=== PATIENT | male | born 1985 | race African-American/Black ===

== ENCOUNTER 2021-04-24 20:58 | Emergency (ER) | payer SELFPAY ==
[2021-04-24] MEDS ORDERED: METOCLOPRAMIDE 10 MG/2mL INJ ONE (21:05)
[2021-04-24] MEDS ORDERED: NA CHLORIDE 0.9% 1,000 ML ONE (21:06)
[2021-04-24] MEDS ORDERED: MORPHINE 4 MG/ML SYR ONE (21:06)
[2021-04-24 21:38] LABS: Absolute Lymphocytes (CBC) 2.4 K/uL (0.7-4.9); Basophils % 0.8 % (0-1.3); Hematocrit 41.9 % (39.6-49.0); MPV 8.3 fL (7.6-11.3); RBC Red Blood Cell Count 4.69 M/uL (4.33-5.43)
[2021-04-24 21:48] LABS: Potassium 3.6 mmol/L (3.5-5.1)
[2021-04-24 22:24] LABS: SARS-COV-2 RT PCR NEGATIVE (NEGATIVE)
[2021-04-24] MEDS ORDERED: MEPERIDINE HCL 50 MG/ML ONE (22:56)
[2021-04-24 23:32] LABS: Barbiturates NEGATIVE (NEGATIVE); Benzodiazepines NEGATIVE (NEGATIVE); Cocaine NEGATIVE (NEGATIVE); METHAMPHETAM NEGATIVE (NEGATIVE); Methadone NEGATIVE (NEGATIVE); Opiates NEGATIVE (NEGATIVE); Phencyclidine NEGATIVE (NEGATIVE); THC Cannibis POSITIVE (NEGATIVE)
--- NOTE | 2021-04-25 | ER ---
Nurse's Notes [facility] Name: Eligio Munguia Age: 36 yrs Sex: Male : 1985 Arrival Date: 04/24/2021 Time: 21:03 Bed 17 Private MD: Diagnosis: Headache Presentation: 04/24 21:10 Chief complaint: EMS states: they were toned out for report of pt with chest pain bb radiating down left arm and difficulty breathing which started earlier today. Coronavirus screen: difficulty breathing, Client presents with at least one sign or symptom that may indicate coronavirus-19. Standard/surgical mask placed on the client. Ebola Screen: No symptoms or risks identified at this time. Initial Sepsis Screen: Does the patient meet any 2 criteria? No. Patient's initial sepsis screen is negative. Does the patient have a suspected source of infection? No. Patient's initial sepsis screen is negative. Risk Assessment: Do you want to hurt yourself or someone else? Patient reports no desire to harm self or others. Onset of symptoms was April 24, 2021. Care prior to arrival: Medication(s) given: Normal saline infusion, Fentanyl 50 mcg IV initiated. 18 GA, in the left antecubital area, Glucose check: 110. 21:10 Method Of Arrival: EMS: [facility] bb 21:10 Acuity: JUSTIN 3 bb Triage Assessment: 21:21 General: Appears distressed, uncomfortable, Behavior is agitated, anxious. Pain: bb Complains of pain in chest Pain radiates to left arm Pain currently is 10 out of 10 on a pain scale. Neuro: Level of Consciousness is awake, alert, obeys commands, Oriented to person, place, situation. Cardiovascular: Capillary refill < 3 seconds Patient's skin is warm and dry. Rhythm is sinus rhythm. Respiratory: Respiratory pattern is tachypnea. GI: No signs and/or symptoms were reported involving the gastrointestinal system. Derm: Skin is dry, Skin is normal, Skin temperature is warm. Musculoskeletal: Circulation, motion, and sensation intact. Historical: - Allergies: 21:21 No Known Allergies; bb - Home Meds: 21:21 None [Active]; bb - PMHx: 21:21 None; bb - PSHx: 21:21 None; bb - Immunization history:: Adult Immunizations up to date, Client reports having NOT received the Covid vaccine. - Social history:: Smoking status: Patient reports the use of cigarette tobacco products, smokes one-half pack cigarettes per day, Patient uses alcohol, occasionally. street drugs, marijuana, pt smoked marijuana earlier today. - Family history:: not pertinent. - Hospitalizations: : No recent hospitalization is reported. Screenin:33 Abuse screen: Denies threats or abuse. Denies injuries from another. Nutritional sm5 screening: No deficits noted. Tuberculosis screening: No symptoms or risk factors identified. Fall Risk No fall in past 12 months (0 pts). No secondary diagnosis (0 pts). No IV (0 pts). Ambulatory Aid- None/Bed Rest/Nurse Assist (0 pts). Gait- Normal/Bed Rest/Wheelchair (0 pts) Mental Status- Oriented to own ability (0 pts). Total Jacobson Fall Scale indicates No Risk (0-24 pts). Assessment: 21:00 Neuro: Level of Consciousness is awake, alert, Oriented to person, place, time, sm5 situation. Cardiovascular: Reports chest pain, Rhythm is regular. Respiratory: Airway is patent Trachea midline Respiratory effort is even, labored. 22:00 Reassessment: Patient and/or family updated on plan of care and expected duration. Pain sm5 level reassessed. 22:55 Pain: Complains of pain in head Pain currently is 5 out of 10 on a pain scale. sm5 04/25 00:18 Reassessment: Patient states feeling better. Patient states symptoms have improved. sm5 Vital Signs: 04/24 21:00 BP 141 / 115; Pulse 91; Resp 25; Pulse Ox 99% on R/A; sm5 21:10 BP 154 / 108; Pulse 96; Resp 32 S; Temp 98.7; Pulse Ox 99% on R/A; Weight 99.79 kg (R); bb Height 5 ft. 9 in. (175.26 cm) (R); 22:00 BP 126 / 87; Pulse 82; Resp 19; Pulse Ox 100% ; sm5 23:00 BP 136 / 71; Pulse 81; Resp 17; Pulse Ox 96% ; sm5 23:00 BP 128 / 113; Pulse 84; Resp 17; Pulse Ox 99% ; sm5 21:10 Body Mass Index 32.49 (99.79 kg, 175.26 cm) bb Joanna Coma Score: 23:57 Eye Response: spontaneous(4). Verbal Response: oriented(5). Motor Response: obeys rn commands(6). Total: 15. ED Course: 21:03 Patient arrived in ED. lp1 21:03 Alex Aguilar MD is Attending Physician. rn 21:06 Laura Swan RN is Primary Nurse. 5 21:07 Initial lab(s) drawn, by me, sent to lab. Maintain EMS IV. Dressing intact. Good blood lp1 return noted. Site clean \T\ dry. Gauge \T\ site: 18g to R AC. 21:21 Triage completed. bb 21:21 Arm band placed on Patient placed in an exam room, on a stretcher, on secured entrance monitor, bb on pulse oximetry, NRB placed on pt to room air for tachypnea. 21:23 Strep Sent. sm5 21:24 Basic Metabolic Panel Sent. sm5 21:24 Procalcitonin Sent. sm5 21:24 CBC with Diff Sent. sm5 21:24 Barron Screen Profile Sent. sm5 21:48 COVID-19/FLU A+B Sent. sm5 21:48 Strep Sent. sm5 22:21 CT Head Brain wo Cont In Process Unspecified. EDMS 22:22 CT Head Angio In Process Unspecified. EDMS 22:22 CT Neck Angio In Process Unspecified. EDMS 22:49 Urine Drug Screen Sent. 5 12 00:19 No provider procedures requiring assistance completed. IV discontinued, intact, sm5 bleeding controlled, No redness/swelling at site. Pressure dressing applied. 00:19 Patient has correct armband on for positive identification. Placed in gown. Bed in low 5 position. Call light in reach. Side rails up X2. Administered Medications: 04/24 21:10 Drug: NS 0.9% 1000 ml Route: IV; Rate: 1000 ml; Site: right antecubital; bb 22:30 Follow up: IV Status: Completed infusion; IV Intake: 1000ml 5 21:13 Drug: morphine 4 mg {Note: RASS 1.} Route: IVP; Site: right antecubital; bb 21:15 Drug: Reglan (metoCLOPramide) 10 mg Route: IVP; Site: right antecubital; bb 23:03 Drug: Demerol (meperidine) 50 mg Route: IM; Site: right deltoid; sm5 Intake: 22:30 IV: 1000ml; Total: 1000ml. [facility] Outcome: 04/25 00:00 Discharge ordered by . rn 00:19 Discharged to home ambulatory, with friend. [facility] 00:19 Condition: good 00:19 Discharge instructions given to patient, friend, Instructed on discharge instructions, Demonstrated understanding of instructions, follow-up care, medications, Prescriptions given X 1. 00:21 Patient left the ED. [facility] Signatures: Dispatcher [employer] EDMS Tiana Storey RN RN bb Alex Aguilar MD MD rn Pena, Laura, RN RN lp1 Laura Swan RN RN 5 Corrections: (The following items were deleted from the chart) 04/24 21:24 21:23 SARS-COV-2 RT PCR+MOL.LAB.BRZ drawn and sent. [address] 21:25 20:15 NS 0.9% 1000 ml IV at 1000 ml in right antecubital bb 22:15 22:14 General: [place] [id number] 22:16 21:00 General: Appears distressed, [place] [id number] 22:16 21:00 Pain: Complains of pain in chest [place] [id number]
--- NOTE | 2021-04-25 00:01 | EDPHYS ---
Physician Documentation [facility] Name: Eligio Munguia Age: 36 yrs Sex: Male : 1985 Arrival Date: 04/24/2021 Time: 21:03 Bed 17 Private MD: ED Physician Alex Aguilar HPI: 04/24 21:24 This 36 yrs old Black Male presents to ER via EMS with complaints of Headache. rn 21:24 The patient complains of pain to the left gnosticism, left side of the back of head, left rn occipital area and left base of the skull. The patient describes the headache as aching, throbbing. Onset: The symptoms/episode began/occurred yesterday. Associated signs and symptoms: Pertinent positives: malaise, blurred vision, Pertinent negatives: altered mental status, fever. Severity of symptoms: At its worst the pain was moderate. Headache History: Denies prior headaches. The symptoms are alleviated by nothing. the symptoms are aggravated by movement, Palpation. The patient has not experienced similar symptoms in the past. The patient has not recently seen a physician. Patient reports headache that began yesterday, improved a little bit with [id number] medication. Headache came back today, left-sided, throbbing, feels it more around the left ear, radiates down the neck and into the chest. Denies any injury. No fever. No vomiting. No focal neurological deficit. Reports slight blurred vision. Reports tingling all over her body that began when breathing heavy. Reports smoked marijuana earlier but denies other drugs. No family history of brain aneurysm or tumor. Given fentanyl by EMS with only slight improvement. Denies history of headache.. Historical: - Allergies: 21:21 No Known Allergies; bb - Home Meds: 21:21 None [Active]; bb - PMHx: 21:21 None; bb - PSHx: 21:21 None; bb - Immunization history:: Adult Immunizations up to date, Client reports having NOT received the Covid vaccine. - Social history:: Smoking status: Patient reports the use of cigarette tobacco products, smokes one-half pack cigarettes per day, Patient uses alcohol, occasionally. street drugs, marijuana, pt smoked marijuana earlier today. - Family history:: not pertinent. - Hospitalizations: : No recent hospitalization is reported. ROS: 21:24 Constitutional: Negative for fever, chills, and weight loss, Eyes: Negative for injury, rn pain, redness, and discharge, ENT: Negative for injury, pain, and discharge, Neck: Negative for injury, and swelling, Cardiovascular: Negative for palpitations, and edema, Respiratory: Negative for shortness of breath, cough, wheezing, and pleuritic chest pain, Abdomen/GI: Negative for abdominal pain, nausea, vomiting, diarrhea, and constipation, Back: Negative for injury and pain, MS/Extremity: Negative for injury and deformity, Skin: Negative for injury, rash, and discoloration, Neuro: Negative for weakness, and seizure. Exam: 21:24 Constitutional: This is a well developed, well nourished patient who is awake, alert, rn appears uncomfortable, restless in stretcher Head/Face: Normocephalic, atraumatic. Eyes: Pupils equal round and reactive to light, extra-ocular motions intact. Lids and lashes normal. Conjunctiva and sclera are non-icteric and not injected. Cornea within normal limits. Periorbital areas with no swelling, redness, or edema. Neck: Trachea midline, no masses palpated, and no cervical lymphadenopathy. Supple, full range of motion without nuchal rigidity, or vertebral point tenderness. No Meningismus. No crepitus Cardiovascular: Regular rate and rhythm. No pulse deficits. Respiratory: Hyperventilating, otherwise speaking full sentences when comes down. Abdomen/GI: Soft, non-tender Skin: Warm, dry MS/ Extremity: Pulses equal, no cyanosis. Neuro: Awake and alert, GCS 15, oriented to person, place, time, and situation. Cranial nerves II-XII grossly intact. Motor strength 5/5 in all extremities. Sensory grossly intact. 21:50 ECG was reviewed by the Attending Physician. rn Vital Signs: 21:00 BP 141 / 115; Pulse 91; Resp 25; Pulse Ox 99% on R/A; sm5 21:10 BP 154 / 108; Pulse 96; Resp 32 S; Temp 98.7; Pulse Ox 99% on R/A; Weight 99.79 kg (R); bb Height 5 ft. 9 in. (175.26 cm) (R); 22:00 BP 126 / 87; Pulse 82; Resp 19; Pulse Ox 100% ; sm5 23:00 BP 136 / 71; Pulse 81; Resp 17; Pulse Ox 96% ; sm5 23:00 BP 128 / 113; Pulse 84; Resp 17; Pulse Ox 99% ; sm5 21:10 Body Mass Index 32.49 (99.79 kg, 175.26 cm) bb Joanna Coma Score: 23:57 Eye Response: spontaneous(4). Verbal Response: oriented(5). Motor Response: obeys rn commands(6). Total: 15. MDM: 21:03 Patient medically screened. rn 23:57 Differential diagnosis: cluster headache, hypertensive headache, intracerebral rn hemorrhage, migraine, neoplasm, tension headache, trigeminal neuralgia, vasomotor headache. Data reviewed: vital signs, nurses notes, lab test result(s), radiologic studies, CT scan, and as a result, I will discharge patient. Counseling: I had a detailed discussion with the patient and/or guardian regarding: the historical points, exam findings, and any diagnostic results supporting the discharge/admit diagnosis, lab results, radiology results, the need for outpatient follow up, to return to the emergency department if symptoms worsen or persist or if there are any questions or concerns that arise at home. Response to treatment: the patient's symptoms have markedly improved after treatment, and as a result, I will discharge patient. Special discussion: I discussed with the patient/guardian in detail that at this point there is no indication for admission to the hospital. It is understood, however, that if the symptoms persist or worsen the patient needs to return immediately for re-evaluation. 23:57 ED course: No acute findings on CT/CT angio head/neck. COVID/FLU/STREP neg, normal rn neuro exam, will dc home. Stable vitals, afebrile. . 04/25 00:11 ED course: Patient feels much better, smiling, repeat neuro exam normal. Normal vision. rn Stable vitals. Will DC home and recommend neurology follow-up as needed.. 04/24 21:05 Order name: Mckean Screen Profile; Complete Time: 22: rn 04/24 21:05 Order name: CBC with Diff; Complete Time: 22: rn 04/24 21:05 Order name: Basic Metabolic Panel; Complete Time: 22: rn 04/24 21:05 Order name: Procalcitonin; Complete Time: 22:54 rn 04/24 21:05 Order name: Strep; Complete Time: 23:57 rn 04/24 21:05 Order name: CT Head Brain wo Cont rn 04/24 21:05 Order name: CT Head Angio rn 04/24 21:06 Order name: Urine Drug Screen; Complete Time: 23:35 rn 04/24 21:08 Order name: CT Neck Angio rn 04/24 21:24 Order name: COVID-19/FLU A+B; Complete Time: 22:54 EDMS 04/24 23:42 Order name: Throat Culture EDMS 04/24 21:05 Order name: IV Start; Complete Time: 21:07 rn 04/24 21:06 Order name: EKG; Complete Time: 21:06 rn 04/24 21:06 Order name: EKG - Nurse/Tech; Complete Time: 21:07 rn EC/30 21:50 Rate is 99 beats/min. Rhythm is regular. QRS Pisek is Normal. LA interval is normal. QRS rn interval is normal. QT interval is normal. No Q waves. T waves are Normal. No ST changes noted. Clinical impression: Normal ECG. Interpreted by me. Reviewed by me. Administered Medications: 21:10 Drug: NS 0.9% 1000 ml Route: IV; Rate: 1000 ml; Site: right antecubital; bb 22:30 Follow up: IV Status: Completed infusion; IV Intake: 1000ml sm5 21:13 Drug: morphine 4 mg {Note: RASS 1.} Route: IVP; Site: right antecubital; bb 21:15 Drug: Reglan (metoCLOPramide) 10 mg Route: IVP; Site: right antecubital; bb 23:03 Drug: Demerol (meperidine) 50 mg Route: IM; Site: right deltoid; sm5 Disposition Summary: 04/25/21 00:00 Discharge Ordered Location: Home rn Problem: new rn Symptoms: have improved rn Condition: Stable rn Diagnosis - Headache rn Followup: rn - With: Private Physician - When: As needed - Reason: Recheck today's complaints, Re-evaluation by your physician Discharge Instructions: - Discharge Summary Sheet rn - General Headache Without Cause rn Forms: - Medication Reconciliation Form rn - Thank You Letter rn - Antibiotic pattern repair person - Prescription Opioid Use rn Prescriptions: - Medrol (Aramis) 4 mg Oral Tablets, Dose Pack - take 1 tablet by ORAL route as directed - follow package instructions; 1 rn packet; Refills: 0, Product Selection Permitted Signatures: Dispatcher [employer] EDMS Tiana Storey RN RN bb Nieto, Roman, MD MD rn Mazur, Sarah, RN RN sm5 Corrections: (The following items were deleted from the chart) 21:23 21:06 Influenza Screen (A \T\ B)+BA.LAB.BRZ ordered. EDMS EDMS 21:24 21:06 SARS-COV-2 RT PCR+MOL.LAB.BRZ ordered. EDMS EDMS
[2021-04-25 00:30] VITALS: TEMP 98.7
[2021-04-25 00:34] VITALS: BP 128/113; O2SAT 99
--- NOTE | 2021-04-25 16:22 | EKG ---
Test Date: 2021-04-24 Test Time: 20:59:51 Research Laboratory Manager: JULISSA MEASUREMENT RESULTS: Intervals: Rate: 99 KS: 152 QRSD: 74 QT: 334 QTc: 428 [place]: P: 67 KS: 152 QRS: 66 T: 10 INTERPRETIVE STATEMENTS: Normal sinus rhythm Normal ECG No previous ECG available for comparison Electronically Signed On 04-25-21 16:21:08 INTELLIGENCE GROUP SUPERVISOR by Brodie Gamino
--- NOTE | 2021-04-25 17:56 | RAD REPORT ---
EXAM DESCRIPTION: CT - Neck Angio - 04/25/2021 6:14 am CLINICAL HISTORY: HEADACHE COMPARISON: CT head without contrast April 24, 2021. TECHNIQUE: Multiple helical axial tomographic images were obtained of the head and neck following ad ministration of intravenous contrast per angiographic protocol. MIP reformatted images were obtained. This exam was performed according to our departmental dose-optimization program, which includes auto mated exposure control, adjustment of the mA and/or kV according to patient size and/or use of iterat lulú reconstruction technique. FINDINGS: Head: Evaluation of intracranial arterial vasculature is limited due to suboptimal arterial enhancement. There is faint enhancement of the intracranial segments of the bilateral internal carotid arteries wh ich appear grossly patent. Faint enhancement of the bilateral anterior and middle cerebral arteries i s demonstrated appearing grossly patent. There is faint enhancement of the intracranial segments of t he bilateral vertebral arteries, basilar artery, and bilateral posterior cerebral arteries appearing grossly patent. No large intracranial aneurysm. There is no acute intracranial hemorrhage. No mass. No midline shift. No ventriculomegaly. Guerrero-white matter differentiation is maintained. There is mild maxillary sinus mucosal thickening. Mastoid air cells and middle ear spaces are clear. Orbits and orbital contents are unremarkable. Osseous structures are unremarkable. Surrounding soft tissues are unremarkable. Neck: Evaluation of the neck arterial vasculature is mildly limited due to suboptimal enhancement. Carotid and vertebral arterial vasculature of the neck appears patent without significant stenosis or occlusion. Thyroid gland appears unremarkable. Salivary glands appear unremarkable. No evidence of adenopathy. R etropharyngeal space appears normal. Epiglottis appears normal. Larynx and vocal folds appear unremar kable. Visualized lungs are clear. Osseous structures are unremarkable. Flexed appearance of the cervical spine noted. IMPRESSION: Exam limited due to suboptimal enhancement. No obvious major intracranial or extracrania l arterial occlusion. Carotid vasculature of the neck appears patent without significant stenosis. Electronically signed by: Darrell Jaimes MD 04/24/2021 11:13 PM KNIT GOODS MENDER Due to temporary technical issues with the PACS/Fluency reporting system, reports are being signed by the in house radiologists without review as a courtesy to insure prompt reporting. The interpreting radiologist is fully responsible for the content of the report.
--- NOTE | 2021-04-25 18:06 | RAD REPORT ---
EXAM DESCRIPTION: CT - Head angio - 04/25/2021 6:14 am CLINICAL HISTORY: HEADACHE COMPARISON: CT head without contrast April 24, 2021. TECHNIQUE: Multiple helical axial tomographic images were obtained of the head and neck following ad ministration of intravenous contrast per angiographic protocol. MIP reformatted images were obtained. This exam was performed according to our departmental dose-optimization program, which includes auto mated exposure control, adjustment of the mA and/or kV according to patient size and/or use of iterat lulú reconstruction technique. FINDINGS: Head: Evaluation of intracranial arterial vasculature is limited due to suboptimal arterial enhancement. There is faint enhancement of the intracranial segments of the bilateral internal carotid arteries wh ich appear grossly patent. Faint enhancement of the bilateral anterior and middle cerebral arteries i s demonstrated appearing grossly patent. There is faint enhancement of the intracranial segments of t he bilateral vertebral arteries, basilar artery, and bilateral posterior cerebral arteries appearing grossly patent. No large intracranial aneurysm. There is no acute intracranial hemorrhage. No mass. No midline shift. No ventriculomegaly. Guerrero-white matter differentiation is maintained. There is mild maxillary sinus mucosal thickening. Mastoid air cells and middle ear spaces are clear. Orbits and orbital contents are unremarkable. Osseous structures are unremarkable. Surrounding soft tissues are unremarkable. Neck: Evaluation of the neck arterial vasculature is mildly limited due to suboptimal enhancement. Carotid and vertebral arterial vasculature of the neck appears patent without significant stenosis or occlusion. Thyroid gland appears unremarkable. Salivary glands appear unremarkable. No evidence of adenopathy. R etropharyngeal space appears normal. Epiglottis appears normal. Larynx and vocal folds appear unremar kable. Visualized lungs are clear. Osseous structures are unremarkable. Flexed appearance of the cervical spine noted. IMPRESSION: Exam limited due to suboptimal enhancement. No obvious major intracranial or extracrania l arterial occlusion. Carotid vasculature of the neck appears patent without significant stenosis. Electronically signed by: Darrell Jaimes MD 04/24/2021 11:13 PM PRODUCTION BOW MAKER Due to temporary technical issues with the PACS/Fluency reporting system, reports are being signed by the in house radiologists without review as a courtesy to insure prompt reporting. The interpreting radiologist is fully responsible for the content of the report.
--- NOTE | 2021-04-25 18:08 | RAD REPORT ---
EXAM DESCRIPTION: CT - Head Brain Wo Cont - 04/25/2021 6:15 am CLINICAL HISTORY: 36 years Male HEADACHE COMPARISON: None TECHNIQUE: Images were obtained in axial, sagittal, and coronal planes. This exam was performed according to our departmental dose-optimization program which includes use of Automated Exposure Control, adjustment of the mA and/or kV according to patient size and/or use of iterative reconstruction technique. FINDINGS: Ventricular system appears normal. No abnormal areas of increased attenuation seen. No extra-axial fluid collections noted. No evidence for skull fracture. Symmetric aeration mastoid air cells bilaterally. Lobular mucosal thi ckening maxillary antra bilaterally. IMPRESSION: No acute intracranial abnormality. No evidence for hemorrhage, mass lesion, or large acu te infarction. Electronically signed by: Rebecca Rodrigues MD 04/24/2021 10:45 PM VP ANALYSIS Due to temporary technical issues with the PACS/Fluency reporting system, reports are being signed by the in house radiologists without review as a courtesy to insure prompt reporting. The interpreting radiologist is fully responsible for the content of the report.
== END 2021-04-25 00:21 | disposition home or self-care (01) ==
LOC: ER 20:58
DX: R51.9 Headache, unspecified (principal); F17.210 Nicotine dependence, cigarettes, uncomplicated; Z20.822 Contact with and (suspected) exposure to COVID-19
CPT/HCPCS: 0240U; 36415; 70450; 70496; 70498; 80048; 80307; 84145; 85025; 86308; 87070; 87081; 93005; 96361; 96372; 96374; 96375; 99284; J2175; J2765; J7030; Q9967

== ENCOUNTER 2021-06-16 17:38 | Emergency (ER) | payer SELFPAY ==
[2021-06-16] MEDS ORDERED: METOCLOPRAMIDE 10 MG/2mL INJ ONE (18:22)
[2021-06-16] MEDS ORDERED: dexAMETHasone 10 MG/ML VIAL ONE (18:22)
[2021-06-16] MEDS ORDERED: MORPHINE 4 MG/ML SYR ONE (18:22)
--- NOTE | 2021-06-16 18:47 | ER ---
Nurse's Notes [facility] Name: Eligio Munguia Age: 36 yrs Sex: Male : 1985 Arrival Date: 06/16/2021 Time: 17:40 Bed 4 Private MD: Diagnosis: Headache Presentation: 06/16 17:46 Chief complaint: Patient states: Last night I began feeling pain. I have had a pain ld1 behind my right eye and right ear drum, down my neck. Sometimes it cramps up and makes it hard for me to breathe. Right side of my body hurts. Coronavirus screen: At this time, the client does not indicate any symptoms associated with coronavirus-19. Ebola Screen: No symptoms or risks identified at this time. Initial Sepsis Screen: Does the patient meet any 2 criteria? No. Patient's initial sepsis screen is negative. Does the patient have a suspected source of infection? No. Patient's initial sepsis screen is negative. Risk Assessment: Do you want to hurt yourself or someone else? Patient reports no desire to harm self or others. Onset of symptoms was June 16, 2021. 17:46 Method Of Arrival: Ambulatory ld1 17:46 Acuity: JUSTIN 3 ld1 Triage Assessment: 17:48 General: Appears in no apparent distress. uncomfortable, Behavior is cooperative, ld1 anxious. Pain: Complains of pain in right arm and right leg Pain currently is 10 out of 10 on a pain scale. Neuro: Level of Consciousness is awake, alert, obeys commands, Oriented to person, place, time, situation. Respiratory: Airway is patent Respiratory effort is even, labored, Respiratory pattern is regular, symmetrical. Historical: - Allergies: 17:48 No Known Allergies; ld1 - Home Meds: 17:48 None [Active]; ld1 - PMHx: 17:48 None; ld1 - PSHx: 17:48 None; ld1 - Immunization history:: Adult Immunizations up to date, Client reports having NOT received the Covid vaccine. - Social history:: Smoking status: Patient reports the use of cigarette tobacco products, smokes one-half pack cigarettes per day, Patient uses alcohol, claims drinking about a 6 pack/day. - Family history:: not pertinent. - Hospitalizations: : No recent hospitalization is reported. Screenin:30 Abuse screen: Denies threats or abuse. Nutritional screening: No deficits noted. ap3 Tuberculosis screening: No symptoms or risk factors identified. Fall Risk None identified. Assessment: 18:31 General: Appears in no apparent distress. Behavior is cooperative, agitated. Pain: ap3 Complains of pain in right ear and right eye and forehead Pain currently is 7 out of 10 on a pain scale. Pain began gradually, 2-3 days ago. Neuro: Level of Consciousness is awake, alert, obeys commands, Oriented to person, place, time, situation, Appropriate for age Data Mining Analyst are equal bilaterally Moves all extremities. Gait is steady, Speech is normal, Facial symmetry appears normal. Cardiovascular: Patient's skin is warm and dry. Respiratory: Airway is patent Respiratory effort is even, unlabored. Vital Signs: 17:46 BP 144 / 101; Pulse 77; Resp 22; Temp 98.9(TE); Pulse Ox 100% on R/A; Weight 102.06 kg; ld1 Height 5 ft. 11 in. (180.34 cm); Pain 10/10; 18:51 BP 109 / 88; Resp 16; rn 17:46 Body Mass Index 31.38 (102.06 kg, 180.34 cm) ld1 Reliance Coma Score: 18:44 Eye Response: spontaneous(4). Verbal Response: oriented(5). Motor Response: obeys rn commands(6). Total: 15. ED Course: 17:40 Patient arrived in ED. as 17:48 Triage completed. ld1 17:48 Arm band placed on right wrist. ld1 17:51 Alex Aguilar MD is Attending Physician. rn 18:19 Inserted saline lock: 20 gauge in left antecubital area, using aseptic technique. dh3 18:31 Patient has correct armband on for positive identification. Bed in low position. Call ap3 light in reach. Side rails up X 1. vegetable vendor on. Pulse ox on. NIBP on. Door closed. Noise minimized. Warm blanket given. 19:27 No provider procedures requiring assistance completed. IV discontinued, intact, ap3 bleeding controlled, No redness/swelling at site. Pressure dressing applied. Administered Medications: 18:30 Drug: morphine 4 mg Route: IVP; Site: left antecubital; ap3 19:01 Follow up: Response: No adverse reaction; Pain is decreased ap3 18:30 Drug: Reglan (metoCLOPramide) 10 mg Route: IVP; Site: left antecubital; ap3 19:00 Follow up: Response: No adverse reaction; Nausea is decreased ap3 18:30 Drug: Decadron - Dexamethasone 10 mg Route: IVP; Site: left antecubital; ap3 19:00 Follow up: Response: No adverse reaction ap3 Outcome: 18:46 Discharge ordered by . rn 19:27 Discharged to home ambulatory. ap3 19:27 Condition: good 19:27 Discharge instructions given to patient, Instructed on discharge instructions, follow up and referral plans. medication usage, Demonstrated understanding of instructions, follow-up care, medications, Prescriptions given X 2. 19:27 Patient left the ED. ap3 Signatures: Maribel Elder Roman, MD MD rn Herrera, Deanna 3 Cherelle Kulkarni RN RN ap3 Larisa Hay RN RN ld1 Corrections: (The following items were deleted from the chart) 17:48 17:48 PSHx: Unable to Obtain; ld1 ld1
--- NOTE | 2021-06-16 18:47 | EDPHYS ---
Physician Documentation [facility] Name: Eligio Munguia Age: 36 yrs Sex: Male : 1985 Arrival Date: 06/16/2021 Time: 17:40 Bed 4 Private MD: ED Physician Alex Aguilra HPI: 06/16 18:02 This 36 yrs old Black Male presents to ER via Ambulatory with complaints of Headache, rn needs meds for nerve pain. 18:02 The patient complains of pain to the forehead, right eye and right ear. The patient rn describes the headache as aching. Onset: The symptoms/episode began/occurred yesterday. Associated signs and symptoms: Pertinent negatives: altered mental status, fever, neck stiffness, rash, vision changes, vision loss, vertigo. Severity of symptoms: At its worst the pain was moderate, in the emergency department the pain is unchanged. Headache History: The patient has had previous headaches and this one is similar to previous episodes. The symptoms are alleviated by nothing. the symptoms are aggravated by nothing. The patient has experienced a previous episode. The patient has not recently seen a physician. Patient reports right-sided headache that radiates to right neck and right shoulder. No fever. No trauma. Has had this happen once before but was left-sided. I saw him then about 2 months ago on that visit, CT head and CT head and neck angio were all normal with improvement after symptomatic treatment. No new symptoms. Reports got better last time and went away with steroids. No chest pain or shortness of breath.. Historical: - Allergies: 17:48 No Known Allergies; ld1 - Home Meds: 17:48 None [Active]; ld1 - PMHx: 17:48 None; ld1 - PSHx: 17:48 None; ld1 - Immunization history:: Adult Immunizations up to date, Client reports having NOT received the Covid vaccine. - Social history:: Smoking status: Patient reports the use of cigarette tobacco products, smokes one-half pack cigarettes per day, Patient uses alcohol, claims drinking about a 6 pack/day. - Family history:: not pertinent. - Hospitalizations: : No recent hospitalization is reported. ROS: 18:02 Constitutional: Negative for fever, chills, and weight loss, Eyes: Negative for injury, rn pain, redness, and discharge, ENT: Negative for injury, pain, and discharge, Neck: Negative for injury, and swelling, Cardiovascular: Negative for chest pain, palpitations, and edema, Respiratory: Negative for shortness of breath, cough, wheezing, and pleuritic chest pain, Abdomen/GI: Negative for abdominal pain, nausea, vomiting, diarrhea, and constipation, Back: Negative for injury and pain, : Negative for injury, bleeding, discharge, and swelling, MS/Extremity: Negative for injury and deformity, Skin: Negative for injury, rash, and discoloration, Neuro: Negative for weakness, and seizure. Exam: 18:02 Constitutional: This is a well developed, well nourished patient who is awake, alert, rn and in no acute distress. Head/Face: Normocephalic, atraumatic. Eyes: Pupils equal round and reactive to light, extra-ocular motions intact. Neck: Trachea midline, no masses palpated, no vertebral point tenderness. No Meningismus. Cardiovascular: Regular rate and rhythm. No pulse deficits. Respiratory: Mild tachypnea, speaking full sentences Skin: Warm, dry, no rashes MS/ Extremity: Pulses equal, no cyanosis. Neurovascular intact. Full, normal range of motion. Equal circumference. Neuro: Awake and alert, GCS 15, oriented to person, place, time, and situation. Cranial nerves II-XII grossly intact. Motor strength 5/5 in all extremities. Sensory grossly intact. Cerebellar exam normal. Normal gait. Vital Signs: 17:46 BP 144 / 101; Pulse 77; Resp 22; Temp 98.9(TE); Pulse Ox 100% on R/A; Weight 102.06 kg; ld1 Height 5 ft. 11 in. (180.34 cm); Pain 10/10; 18:51 BP 109 / 88; Resp 16; rn 17:46 Body Mass Index 31.38 (102.06 kg, 180.34 cm) ld1 Joanna Coma Score: 18:44 Eye Response: spontaneous(4). Verbal Response: oriented(5). Motor Response: obeys rn commands(6). Total: 15. MDM: 17:51 Patient medically screened. rn 18:44 Differential diagnosis: migraine, tension headache, trigeminal neuralgia, vasomotor rn headache. Data reviewed: vital signs, nurses notes, old medical records, and as a result, I will discharge patient. Counseling: I had a detailed discussion with the patient and/or guardian regarding: the historical points, exam findings, and any diagnostic results supporting the discharge/admit diagnosis, lab results, radiology results, the need for outpatient follow up, to return to the emergency department if symptoms worsen or persist or if there are any questions or concerns that arise at home. Response to treatment: the patient's symptoms have markedly improved after treatment, and as a result, I will discharge patient. Special discussion: I discussed with the patient/guardian in detail that at this point there is no indication for admission to the hospital. It is understood, however, that if the symptoms persist or worsen the patient needs to return immediately for re-evaluation. Based on the history and exam findings, there is no indication for further emergent testing or inpatient evaluation. I discussed with the patient/guardian the need to see the neurologist for further evaluation of the symptoms. ED course: Patient improved, resting comfortably, similar event 2 months ago with negative CAT scans including angios. No trauma. Normal neurological exam. No chest pain or difficulty breathing. Will discharge home with pain medication and steroids for migraine versus nerve pain.. 06/16 17:57 Order name: IV Start; Complete Time: 18:33 rn Administered Medications: 18:30 Drug: morphine 4 mg Route: IVP; Site: left antecubital; ap3 19:01 Follow up: Response: No adverse reaction; Pain is decreased ap3 18:30 Drug: Reglan (metoCLOPramide) 10 mg Route: IVP; Site: left antecubital; ap3 19:00 Follow up: Response: No adverse reaction; Nausea is decreased ap3 18:30 Drug: Decadron - Dexamethasone 10 mg Route: IVP; Site: left antecubital; ap3 19:00 Follow up: Response: No adverse reaction ap3 Disposition Summary: 06/16/21 18:46 Discharge Ordered Location: Home rn Problem: new rn Symptoms: have improved rn Condition: Stable rn Diagnosis - Headache rn Followup: rn - With: Private Physician - When: As needed - Reason: Recheck today's complaints, Re-evaluation by your physician Discharge Instructions: - Discharge Summary Sheet rn - Migraine Headache rn - Hypertension, Adult rn Forms: - Medication Reconciliation Form rn - Thank You Letter rn - Antibiotic varnish melter - Prescription Opioid Use rn Prescriptions: - Cyclobenzaprine 10 mg Oral Tablet - take 1 tablet by ORAL route every 8 hours As needed; 15 tablet; Refills: 0, rn Product Selection Permitted - Medrol (Aramis) 4 mg Oral Tablets, Dose Pack - take 1 tablet by ORAL route as directed - follow package instructions; 1 rn packet; Refills: 0, Product Selection Permitted Signatures: Alex Aguilar MD MD rn Prokisch, Amanda, RN RN ap3 Larisa Hay RN RN ld1 Corrections: (The following items were deleted from the chart) 17:48 17:48 PSHx: Unable to Obtain; ld1 ld1 18:51 18:51 BP 109 / 88; rn imelda
[2021-06-16 21:15] VITALS: TEMP 98.9; O2SAT 100
[2021-06-16 21:16] VITALS: BP 109/88
== END 2021-06-16 19:27 | disposition home or self-care (01) ==
LOC: ER 17:38
DX: R51.9 Headache, unspecified (principal); F17.210 Nicotine dependence, cigarettes, uncomplicated
CPT/HCPCS: 96374; 96375; 99284; J1100; J2765